=== PATIENT | female | born 1950 | race Hispanic/Latino ===

== ENCOUNTER 2018-10-13 19:48 | Emergency (ER) | payer MEDICARE, OTHER, SELFPAY ==
[2018-10-13] MEDS ORDERED: NACL 0.9% 1000 ML 1,000 ML IV ONE ×2 (20:19→22:46)
--- NOTE | 2018-10-13 20:23 | Emergency Department Report ---
HPI - HPI HPI: 68-year-old female presents to the emergency department by EMS from home with complaint of accidentally taking too much methylprednisolone that caused her blood sugar to go up greater than 500. The patient has a past medical history of non-insulin diabetes, hypertension, spinal stenosis, vertigo and osteopenia. She went to [facility] this morning secondary to exacerbation of her chronic back pains. She was discharged home with a Medrol dosepak, Zanaflex and tramadol. She has not taken any of the muscle relaxer or pain medication, but the patient did want to start the steroids for her back pain. The first day of the Medrol Dosepak is written for her to take 2 pills 3 times a day, a.m., noon and p.m. patient says that she got confused and took all 6 of those pills this afternoon. The patient realized her mistake and says that she did not have the number for poison control so she just called 911. EMS found her to have a critical high blood sugar of greater than 500. Patient takes glipizide. She says that her blood sugar was checked yesterday and it was 116. She was given some IVF in route. ED Past Medical Hx - Past Medical History Hx Diabetes: Yes Hx GERD: Yes - Surgical History Hx Cholecystectomy: Yes (1999) Additional Surgical History: Regulo Carpel tunnel release. 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 Partial hysterectomy, Bladder sling 1998, - Social History Smoking Status: Never Smoker Substance Use Type: Prescribed - Medications Home Medications: Home Medications Medication Instructions Recorded Confirmed Last Taken Type Cetirizine HCl [Zyrtec] 10 mg PO DAILY 02/11/14 02/11/14 02/11/14 History Cholecalciferol (Vitamin D3) 1,000 unit PO DAILY 02/11/14 02/11/14 02/11/14 History [Vitamin D3] Cranberry Conc/Ascorbic Acid 1 each PO DAILY 02/11/14 02/11/14 02/11/14 History [Cranberry Plus Vitamin C Sftgl] Diphenhydramine HCl [Wal-Sleep Z] 25 mg PO PRN 02/11/14 02/11/14 02/10/14 History Yamile Root 550 mg PO DAILY 02/11/14 02/11/14 02/11/14 History Lisinopril [Zestril] 20 mg PO QDAY 02/11/14 02/11/14 02/11/14 History Magnesium/Ling Zinc PO DAILY 02/11/14 02/11/14 02/11/14 History [place]-3S/Dha/Epa/Fish Oil/D3 [Fish 1 PO DAILY 02/11/14 02/11/14 02/11/14 History Oil + D3 Softgel] Rosuvastatin (Nf) [Crestor] 20 mg PO QHS 02/11/14 02/11/14 02/11/14 History Vitamin B Complex [B Complex # 1] 1,000 mcg PO DAILY 02/11/14 02/11/14 02/11/14 History metFORMIN [Glucophage] 500 mg PO BID 02/11/14 02/11/14 02/11/14 History Ciprofloxacin HCl [Cipro] 500 mg PO Q12H #20 tab 02/12/14 Unknown Rx cephALEXin [Keflex] 500 mg PO Q6H #40 capsule 02/12/14 Unknown Rx ED Review of Systems ROS: Stated complaint: POSS OVERDOSE Other details as noted in HPI Comment: All other systems reviewed and negative Constitutional: denies: chills, fever Eyes: denies: eye pain, vision change ENT: denies: ear pain, throat pain Respiratory: denies: cough, shortness of breath Cardiovascular: denies: chest pain, palpitations Endocrine: increased thirst, increased urine Gastrointestinal: denies: abdominal pain, vomiting Genitourinary: dysuria, frequency Musculoskeletal: denies: back pain, arthralgia Skin: denies: rash, lesions Neurological: denies: headache, weakness Physical Exam - Physical Exam Physical Exam: GENERAL: The patient is well-developed well-nourished. HENT: Normocephalic. Atraumatic. Patient has moist mucous membranes. EYES: Extraocular motions are intact. NECK: Supple. Trachea is midline. CHEST/LUNGS: Clear to auscultation. There is no respiratory distress noted. HEART/CARDIOVASCULAR: Regular. There is no tachycardia. There is no murmur. ABDOMEN: Abdomen is soft, nontender. Patient has normal bowel sounds. There is no abdominal distention. SKIN: Skin is warm and dry. NEURO: The patient is awake, alert, and oriented. The patient is cooperative. The patient has no focal neurologic deficits. The patient has normal speech. MUSCULOSKELETAL: There is no tenderness or deformity. There is no limitation range of motion. There is no evidence of acute injury. ED Medical Decision Making - Lab Data Result diagrams: 10/13/18 20:25 10/13/18 20:25 - Medical Decision Making This patient presents to the emergency department with hyperglycemia that may be secondary to a large amount of steroids that she was taking today to treat some acute on chronic back pains. Instead of spacing out the methylprednisolone throughout the day, the patient took it all at once and also received an injection of steroids at the hospital this morning. Her blood sugar allegedly was greater than 500 but was about 450 with the serum glucose here in the emergency department. There is no venous acidosis and the patient appears low suspicion for diabetic ketoacidosis. She was given 2 L of IV fluid and 2 different doses of IV insulin and her blood sugars come down to about 270. Vital signs are stable throughout her ED course. The patient says she is feeling improved and asking for discharge home. She will continue with her glipizide. We discussed dietary/lifestyle changes to make and she will continue to monitor her blood glucose levels. For now, the patient will stay away from any further steroid use until she is able to discuss this with her primary care physician and orthopedist. She will return to the ER with any worsening of her symptoms or any acute distress. - Differential Diagnosis DKA, HHNK Critical Care Time: No Critical care attestation.: If time is entered above; I have spent that time in minutes in the direct care of this critically ill patient, excluding procedure time. ED Disposition Clinical Impression: Hyperglycemia Disposition: DC-01 TO HOME OR SELFCARE Is pt being admited?: No Condition: Stable Instructions: Diabetic Hyperglycemia (ED) Additional Instructions: Please follow-up with your primary care physician and orthopedist regarding your elevated blood sugar levels and whether or not to continue with the Medrol Dosepak. Continue with your glipizide. Try and stay away from foods that are high in sugar, carbohydrates and starches. Keep a blood sugar log. Return to the emergency Department with any worsening of your symptoms, continued elevated blood sugar levels, or with any acute distress. Referrals: PRIMARY CARE, [Primary Care Provider] - 2-3 Days Time of Disposition: 00:34
[2018-10-13 20:37] LABS: Bacteria,Urine 1+ /HPF (Negative); Bilirubin,Urine NEG (Negative); Blood,Urine NEG (Negative); Color,Urine Yellow (Yellow); Mucus,Urine 3+ /HPF; Protein,Urine <15 mg/dL mg/dL (Negative); Urobilinogen,Urine < 2.0 mg/dL (<2.0)
[2018-10-13 20:42] LABS: Basophils % (Auto) 0.4 % (0.0-1.8); Hematocrit 37.7 % (30.3-42.9); Hemoglobin 13.1 gm/dl (10.1-14.3); Lymphocytes # (Auto) 0.7 K/mm3 (1.2-5.4); Lymphocytes % (Auto) 12.4 % (13.4-35.0); Mean Corpuscular HGB Conc 35 % (30-34); Mean Corpuscular Volume 99 fl (79-97); Monocytes # (Auto) 0.1 K/mm3 (0.0-0.8); Monocytes % (Auto) 1.1 % (0.0-7.3); Platelet Count 131 K/mm3 (140-440); Red Blood Count 3.79 M/mm3 (3.65-5.03); Red Cell Distribution Width 13.3 % (13.2-15.2)
[2018-10-13 21:18] LABS: Calcium 9.1 mg/dL (8.4-10.2)
[2018-10-13] MEDS ORDERED: HumuLIN R IV ONE ×2 (21:34→22:46)
[2018-10-14 00:58] VITALS: BP 113/62
== END 2018-10-14 00:57 | disposition home or self-care (01) ==
LOC: ED 19:48
DX: E11.65 Type 2 diabetes mellitus with hyperglycemia (principal); I10 Essential (primary) hypertension; K21.9 Gastro-esophageal reflux disease without esophagitis; Z88.1 Allergy status to other antibiotic agents; Z88.2 Allergy status to sulfonamides; Z88.5 Allergy status to narcotic agent; Z90.49 Acquired absence of other specified parts of digestive tract; Z90.711 Acquired absence of uterus with remaining cervical stump; Z98.890 Other specified postprocedural states; Z79.899 Other long term (current) drug therapy; Z79.84 Long term (current) use of oral hypoglycemic drugs
CPT/HCPCS: 36415; 80048; 81001; 82805; 82962; 85025; 96361; 96374; 96376; 99284; J7030; J1815